=== PATIENT | female | born 1960 ===

== ENCOUNTER → 2019-02-16 | Outpatient (CLI) | payer BC | END | disposition home or self-care (01) | LOC: PLD 08:17 → LAB SHORT 08:17 | DX: D04.61 Carcinoma in situ of skin of right upper limb, including shoulder (principal) | CPT/HCPCS: 88305 ==

== ENCOUNTER → 2025-08-10 | Outpatient (CLI) | payer MEDICARE ==
[2025-08-10 15:04] LABS: Bacterial Vaginosis PCR Negative (NEGATIVE); Candida Group, PCR NOT DETECTED (NOT DETECT); Candida glabrata-krusei, PCR NOT DETECTED (NOT DETECT)
[2025-08-12 23:41] LABS: MYCOPLASMA GENITALIUM BY PCR Not Detected; MYCOPLASMA HOMINIS BY PCR Not Detected; UREAPLASMA MYCOPLASMA SOURCE Urine; UREAPLASMA PARVUM BY PCR Not Detected; UREAPLASMA UREALYTICUM BY PCR Not Detected
== END ==
LOC: LAB 11:12 → LAB SHORT 11:12
PROVIDERS: Advanced Practice Midwife
DX: N76.0 Acute vaginitis (principal); Z11.3 Encounter for screening for infections with a predominantly sexual mode of transmission
CPT/HCPCS: 81515; 87563; 87798